=== PATIENT | female | born 1940 | race Caucasian/White ===

== ENCOUNTER → 2016-10-25 | Outpatient (CLI) | payer OTHER | LOC: BMCIMAGING 10:07 | PROVIDERS: ATTEND Internal Medicine | DX: Z13.820 Encounter for screening for osteoporosis (principal); M85.80 Other specified disorders of bone density and structure, unspecified site ==

== ENCOUNTER → 2017-02-12 | Outpatient (CLI) | payer OTHER ==
[~2017-02-12] MED LIST: IOPAMIDOL (ISOVUE-300) 100 ML BTL ONE
== END ==
LOC: FIMAGING 09:49
PROVIDERS: ATTEND Internal Medicine Endocrinology, Diabetes & Metabolism
DX: E27.8 Other specified disorders of adrenal gland (principal); M51.36 Other intervertebral disc degeneration, lumbar region; M46.96 Unspecified inflammatory spondylopathy, lumbar region; M43.16 Spondylolisthesis, lumbar region
CPT/HCPCS: Q9967

== ENCOUNTER → 2017-03-01 | Outpatient (CLI) | payer OTHER | LOC: BMCIMAGING 14:02 | PROVIDERS: ATTEND Internal Medicine | DX: R22.42 Localized swelling, mass and lump, left lower limb (principal) ==

== ENCOUNTER → 2017-03-21 | Outpatient (CLI) | payer OTHER | LOC: BHLMT 11:30 | PROVIDERS: ATTEND Internal Medicine Cardiovascular Disease | DX: I35.0 Nonrheumatic aortic (valve) stenosis (principal); I10 Essential (primary) hypertension; Z95.4 Presence of other heart-valve replacement ==

== ENCOUNTER → 2017-11-01 | Outpatient (CLI) | payer OTHER | LOC: BHLMT 09:00 | PROVIDERS: ATTEND Internal Medicine Cardiovascular Disease | DX: I25.10 Atherosclerotic heart disease of native coronary artery without angina pectoris (principal) | CPT/HCPCS: 78452; 93017; A9500 ==

== ENCOUNTER → 2017-11-08 | Outpatient (CLI) | payer OTHER | LOC: BHLMT 09:15 | PROVIDERS: ATTEND Internal Medicine Cardiovascular Disease | DX: I25.10 Atherosclerotic heart disease of native coronary artery without angina pectoris (principal); Z95.2 Presence of prosthetic heart valve; Z98.890 Other specified postprocedural states | CPT/HCPCS: 93306-PO ==

== ENCOUNTER → 2017-11-11 | Outpatient (CLI) | payer OTHER | LOC: BMCIMAGING 09:44 | PROVIDERS: ATTEND Family Medicine | DX: R07.81 Pleurodynia (principal); Z95.2 Presence of prosthetic heart valve | CPT/HCPCS: 71101-PO ==

== ENCOUNTER → 2018-03-12 | Outpatient (CLI) | payer OTHER | LOC: BMCIMAGING 10:30 | PROVIDERS: ATTEND Family Medicine | DX: M23.92 Unspecified internal derangement of left knee (principal); M11.262 Other chondrocalcinosis, left knee; M25.462 Effusion, left knee ==

== ENCOUNTER → 2018-04-05 | Outpatient (CLI) | payer OTHER | LOC: FIMAGING 07:35 | PROVIDERS: ATTEND Orthopaedic Surgery | DX: S83.242A Other tear of medial meniscus, current injury, left knee, initial encounter (principal); S83.282A Other tear of lateral meniscus, current injury, left knee, initial encounter; M25.462 Effusion, left knee ==

== ENCOUNTER 2018-05-12 13:10 | Observation (INO) | payer OTHER ==
[2018-05-12] MEDS ORDERED: LABETALOL HCL 5 MG/ML 20 ML MDV IVP ONE (13:31)
[2018-05-12] MEDS ORDERED: NS 500 ML IV ONE (13:32)
[2018-05-12] MEDS ORDERED: ASPIRIN 81 MG CHEWABLE TAB PO ONE (13:32)
--- NOTE | 2018-05-12 13:36 | EDPHY ---
H & P Time Seen by Provider: 05/12/18 13:17 HPI/ROS: CHIEF COMPLAINT: Chest pain HISTORY OF PRESENT ILLNESS: Patient is a 69-year-old female status post mitral valve replacement in 2003 the presents emergency department with substernal chest pain. Her pain started at 10:00 a.m. She reports doing nothing strenuous. Her pain is significant. It does not radiate. It is a dull type pain. She has no shortness of breath. No nausea, vomiting or diaphoresis. She has no recent travel. No leg pain or swelling. She is on Coumadin for her mitral valve prolapse. Patient is also noted to have factor 5 Leiden. Patient states that when she had her mitral valve prolapse replacement in 2003 they told her that she had clean and normal appearing arteries. REVIEW OF SYSTEMS: 10 systems were reveiwed and are negative with the exception of the elements mentioned in the hisotry of present illness. Past Medical/Surgical History: Includes factor 5 Leiden, mitral valve disease Past surgical history: Mitral valve replacement Social history: Patient lives with her daughter. She does not smoke use alcohol. Smoking Status: Never smoked Physical Exam: Vitals noted. Patient is hypertensive at 207/105. When I was in the room the pressure was 190/74. GENERAL: Well-appearing, in no acute distress, alert. HEENT: Eyes normal to inspection, normal pharynx, no signs of dehydration. NECK: Normal, supple. RESPIRATORY: Clear to auscultation bilaterally, no rales, rhonchi or wheezing. CVS: Regular rate and rhythm, no rubs, murmurs, or gallops. Sternal scar. No sternal tenderness to palpation. No deformity or discoloration. ABDOMEN: Soft, nontender, nondistended, no organomegaly. BACK: Normal to inspection, no CVA tenderness. SKIN: Normal color, no rash, warm, dry. No pallor. EXTREMITIES: No pedal edema, no calf tenderness, no Homans sign or cords, no joint swelling. NEURO/PSYCH: Alert and oriented, normal mood and affect, normal motor sensory exam. No obvious cranial nerve deficit. Constitutional: Initial Vital Signs Temperature (C) 36.5 C 05/12/18 13:11 Heart Rate 89 05/12/18 13:11 Respiratory Rate 20 05/12/18 13:11 Blood Pressure 207/105 H 05/12/18 13:11 O2 Sat (%) 95 05/12/18 13:11 O2 Delivery Mode Room Air Allergies/Adverse Reactions: formaldehyde Allergy (Verified 05/12/18 13:15) Sulfa (Sulfonamide Antibiotics) Allergy (Verified 05/12/18 13:15) Home Medications: Medication Instructions Recorded Coumadin 05/12/18 Metoprolol Tartrate 05/12/18 Medical Decision Making - Diagnostics Imaging Results: Imaging Impressions Chest X-Ray 05/12/18 13:33 Impression: Question mild bronchitis. No other finding for acute cardiopulmonary abnormality. Chronic findings, as above. ED Course/Re-evaluation: In the emergency department I discussed possible etiologies with the patient. I answered all her questions. Patient was given aspirin 324 mg orally. Because the patient's hypertension and heart rate in the 90 she was given labetalol 10 mg IV. EKG shows normal sinus rhythm, normal rate, normal axis, normal intervals. There are no ST or T-wave abnormalities. EKG is normal as interpreted by me. On recheck the patient is stable. Still with mild chest discomfort White count is 10. Patient's chemistry panel is notable for low sodium 132. The INR is elevated at 2.4. Troponin is negative. On recheck the patient was feeling better. Her chest pain had improved. Repeat blood pressure is 158/63. I discussed the results with the patient. I answered all of her questions. I discussed the case with Dr. Rizzo. Patient will be admitted for further evaluation. Differential Diagnosis: My differential includes but is not limited to hypertensive emergency, hypertensive urgency, ACS, acute WA, dissection, aneurysm, pulmonary embolus, reflux peptic ulcer disease Critical Care Time: Patient required 35 min critical care time. This was exclusive of any unbundled procedure. This was due the patient's elevated blood pressure, chest pain, need for IV labetalol, frequent rechecks and consultation with Internal Medicine. - Data Points Laboratory Results: Laboratory Results 05/12/18 13:24 05/12/18 13:24 05/12/18 05/12/18 05/12/18 13:29 13:24 13:24 WBC RBC Hgb Hct MCV MCH MCHC RDW Plt Count MPV Neut % (Auto) Lymph % (Auto) [place] % (Auto) Eos % (Auto) Baso % (Auto) Nucleat RBC Rel Count Absolute Neuts (auto) Absolute Lymphs (auto) Absolute Monos (auto) Absolute Eos (auto) Absolute Basos (auto) Absolute Nucleated RBC Immature Gran % Immature Gran # PT 26.8 SEC H SEC (12.0-15.0) INR 2.48 H (0.83-1.16) APTT 40.3 SEC H SEC (23.0-38.0) D-Dimer 0.42 ug/mLFEU ug/mLFEU (0.00-0.50) Sodium 132 mEq/L L mEq/L (135-145) Potassium 3.9 mEq/L mEq/L (3.3-5.0) Chloride 97 mEq/L mEq/L (97-110) Carbon Dioxide 25 mEq/l mEq/l (22-31) Anion Gap 10 mEq/L mEq/L (8-16) BUN 13 mg/dL mg/dL (7-23) Creatinine 0.6 mg/dL mg/dL (0.6-1.0) Estimated GFR > 60 Glucose 107 mg/dL H mg/dL (70-100) Calcium 9.3 mg/dL mg/dL (8.5-10.4) Total Bilirubin 1.1 mg/dL mg/dL (0.1-1.4) Conjugated Bilirubin 0.0 mg/dL mg/dL (0.0-0.5) Unconjugated Bilirubin 1.1 mg/dL mg/dL (0.0-1.1) AST 38 IU/L IU/L (14-46) ALT 48 IU/L IU/L (9-52) Alkaline Phosphatase 116 IU/L IU/L (38-126) POC Troponin I 0.01 ng/mL ng/mL (0.00-0.08) Total Protein 6.9 g/dL g/dL (6.3-8.2) Albumin 4.1 g/dL g/dL (3.5-5.0) Lipase 109 IU/L IU/L (23-300) 05/12/18 13:24 WBC 10.70 10^3/uL H 10^3/uL (3.80-9.50) RBC 5.00 10^6/uL 10^6/uL (4.18-5.33) Hgb 14.6 g/dL g/dL (12.6-16.3) Hct 42.6 % % (38.0-47.0) MCV 85.2 fL fL (81.5-99.8) MCH 29.2 pg pg (27.9-34.1) MCHC 34.3 g/dL g/dL (32.4-36.7) RDW 13.5 % % (11.5-15.2) Plt Count 215 10^3/uL 10^3/uL (150-400) MPV 10.1 fL fL (8.7-11.7) Neut % (Auto) 64.7 % % (39.3-74.2) Lymph % (Auto) 27.2 % % (15.0-45.0) [place] % (Auto) 6.6 % % (4.5-13.0) Eos % (Auto) 1.0 % % (0.6-7.6) Baso % (Auto) 0.3 % % (0.3-1.7) Nucleat RBC Rel Count 0.0 % % (0.0-0.2) Absolute Neuts (auto) 6.92 10^3/uL H 10^3/uL (1.70-6.50) Absolute Lymphs (auto) 2.91 10^3/uL 10^3/uL (1.00-3.00) Absolute Monos (auto) 0.71 10^3/uL 10^3/uL (0.30-0.80) Absolute Eos (auto) 0.11 10^3/uL 10^3/uL (0.03-0.40) Absolute Basos (auto) 0.03 10^3/uL 10^3/uL (0.02-0.10) Absolute Nucleated RBC 0.00 10^3/uL 10^3/uL (0-0.01) Immature Gran % 0.2 % % (0.0-1.1) Immature Gran # 0.02 10^3/uL 10^3/uL (0.00-0.10) PT INR APTT D-Dimer Sodium Potassium Chloride Carbon Dioxide Anion Gap BUN Creatinine Estimated GFR Glucose Calcium Total Bilirubin Conjugated Bilirubin Unconjugated Bilirubin AST ALT Alkaline Phosphatase POC Troponin I Total Protein Albumin Lipase Medications Given: Discontinued Medications Aspirin (Aspirin) 324 mg PO EDNOW ONE Stop: 05/12/18 13:33 Last Admin: 05/12/18 13:37 Dose: 324 mg Sodium Chloride (Ns) 500 mls @ 1,000 mls/hr IV EDNOW ONE PRN Reason: Protocol Stop: 05/12/18 14:01 Last Admin: 05/12/18 13:37 Dose: 500 mls Labetalol HCl (Trandate Injection) 10 mg IVP ONCE ONE Stop: 05/12/18 13:32 Last Admin: 05/12/18 13:56 Dose: 10 mg Point of Care Test Results: Chemistry 05/12/18 13:29 POC Troponin I 0.01 ng/mL ng/mL (0.00-0.08) Departure - Departure Disposition: [facility] Inpatient Acute Clinical Impression: Hypertensive urgency Chest pain Qualifiers: Chest pain type: unspecified Qualified Code(s): R07.9 - Chest pain, unspecified Condition: Good Referrals: Henny Bates MD [Primary Care Provider] - As per Instructions
[2018-05-12 13:39] LABS: PLATELET COUNT 215 10^3/uL (150-400)
[2018-05-12 13:48] LABS: INR 2.48 (0.83-1.16); PROTIME(PATIENT) 26.8 SEC (12.0-15.0)
--- NOTE | 2018-05-12 14:27 | CPEKG ---
Test Reason : OPEN Blood Pressure : / mmHG Vent. Rate : 086 BPM Atrial Rate : 086 BPM P-R Int : 189 ms QRS Dur : 094 ms QT Int : 355 ms P-R-T Axes : 037 -33 053 degrees QTc Int : 425 ms Sinus rhythm Probable left ventricular hypertrophy Confirmed by Ritchie Chavira ([id number]) on 05/12/2018 2:27:02 PM Referred By: Confirmed By:Ritchie Chavira
[2018-05-12] MEDS ORDERED: ONDANSETRON 4 MG/2 ML VIAL IVP PRN (16:35)
[2018-05-12] MEDS ORDERED: PROMETHAZINE HCL 25 MG/ML INJ IVP PRN (16:35)
[2018-05-12] MEDS ORDERED: ACETAMINOPHEN 325 MG TAB PO PRN (16:35)
[2018-05-12] MEDS ORDERED: hydrALAZINE 20 MG/ML VIAL IVP PRN (16:35)
[2018-05-12] MEDS ORDERED: NITROGLYCERIN 0.4 MG BTL SL PRN (16:36)
[2018-05-12] MEDS ORDERED: PANTOPRAZOLE SODIUM 40 MG TAB PO ONE (16:39)
--- NOTE | 2018-05-12 17:23 | GHP ---
DATE OF ADMISSION: 05/12/2018 CHIEF COMPLAINT: Chest pain. HISTORY: The patient is a 77-year-old female who had onset of chest pain at 10 o'clock this morning. She describes as a central intense chest pressure. She took her blood pressure immediately at ches t pain onset and it was on her home monitor 129/69. Chest pain has been continuous, although improve d. At its worst it was a 7/10. Currently it has come down to 2/10. The only intervention in the em ergency room was a dose of IV labetalol for severe blood pressure elevation. She denies a history of hypertension as she monitors her blood pressure at home intermittently with a home cuff and has celestino bass had elevated readings. She says the chest pain has no change with ambulation or at rest. She desc ribes it as an intense burning without radiation. PAST MEDICAL HISTORY: 1. Mitral valve replacement with a [employer] mechanical valve in 2003. 2. Cardiac catheterization in 2003 at the time of her valve replacement was negative. 3. Factor V Leiden. MEDICATIONS: Please see computerized record for full detailed list. ALLERGIES: To sulfa and formaldehyde. SOCIAL HISTORY: She quit smoking at age 39. No alcohol. She lives with her son and [id number] . REVIEW OF SYSTEMS: Complete review of systems obtained. Review of systems negative regarding consti tutional, HEENT, GI, pulmonary, vascular, , hematologic, endocrine, psych except for positives and negatives as in HPI. FAMILY HISTORY: Brother had coronary artery disease requiring stents in his 60s. PHYSICAL EXAMINATION: GENERAL: Well-developed, well-nourished female, in no acute distress. VITAL SIGNS: Temperature is 36.5, pulse 89, blood pressure 155/82, sating 96% on room air. EYE: Normal c onjunctiva. Pupils react to light. ENT: Normal ears, nose. Hearing intact. Normal teeth. Oropha rynx moist. NECK: Trachea midline. No thyromegaly. CHEST: Normal respiratory effort. LUNGS: Cl ear to auscultation bilaterally. CARDIOVASCULAR: Regular rhythm. No murmur. No lower extremity ed mirna. ABDOMEN: Soft, nontender, no hepatosplenomegaly. SKIN: Warm, dry, intact without rash. MUSC ULOSKELETAL: No cyanosis, clubbing. Strength 5/5 upper and lower extremities. NEUROLOGIC: Cranial nerves intact. Normal sensation to light touch. PSYCHIATRIC: Alert and oriented x3. Normal affect . Normal judgment and insight. Normal memory. LABORATORY/IMAGING DATA: White count 10.7, hematocrit 42.6, platelets 215. Sodium 132, potassium 3. 9, chloride 97, bicarb 25, BUN 13, creatinine of 0.6, glucose 107. LFTs are negative. Troponins neg ative. INR is 2.48. D-dimer is negative. EKG viewed by me. My personal interpretation is normal s inus rhythm with LVH. Chest x-ray is negative. ASSESSMENT/PLAN: 1. Chest pain. Her heart score is 4 as evidenced by moderately suspicious history, age greater than 65, and 2 risk factors including family history, and current hypertension. She is able to exercise. Her EKG shows borderline left ventricular hypertrophy, but we will go ahead and try her on a standa rd exercise treadmill test tomorrow morning. Will give her a 1-time dose of oral Protonix it sounds like it may be gastroesophageal reflux disease. Also for pain control intravenous morphin e and sublingual nitroglycerin can be used and hopefully we can make her chest pain-free here soon. Her D-dimer is negative. I have a low clinical suspicion for aortic dissection or pulmonary embolus. Will hold her metoprolol in anticipation of exercise stress test tomorrow morning. 2. Hypertensive emergency as is evidenced by severe blood pressure elevation with chest pain. This is better after a 1-time dose of intravenous labetalol. Will use intravenous hydralazine as needed f or continued elevations. She monitors her blood pressure at home and has never had elevated readings in the past. Some of this may be due to pain and anxiety. If blood pressures remain persistently e levated during the observation period, then oral medication can be considered in addition to her usua l metoprolol. 3. Mitral valve replacement. Warfarin should be continued for goal INR 2.5 to 3.5. I will continue it for now thinking she may have a negative stress test workup. If, however, stress test is positive , will need to pursue cardiac catheterization. Probably need to reverse anticoagulation. CODE STATUS: Full. ADMISSION STATUS: Will admit to observation. Reevaluate tomorrow post stress testing to see whether further hospitalization is indicated. DVT PROPHYLAXIS: She is low risk given her chronic anticoagulation. /[id number]/MODL
[2018-05-12] MEDS ORDERED: WARFARIN SODIUM 4 MG TAB PO SCH (19:00)
[2018-05-12] MEDS ORDERED: WARFARIN SODIUM 2 MG TAB PO SCH (19:15)
--- NOTE | 2018-05-12 23:41 | CPEKG ---
Test Reason : OPEN Blood Pressure : / mmHG Vent. Rate : 075 BPM Atrial Rate : 075 BPM P-R Int : 205 ms QRS Dur : 094 ms QT Int : 378 ms P-R-T Axes : 057 -30 051 degrees QTc Int : 423 ms Sinus rhythm Probable left atrial enlargement Left axis deviation Probable anteroseptal infarct, old Confirmed by Gibran Gilliland ([id number]) on 05/12/2018 11:40:34 PM Referred By: Confirmed By:Gibran Gilliland
[2018-05-13 04:47] LABS: INR 2.69 (0.83-1.16); PROTIME(PATIENT) 28.5 SEC (12.0-15.0)
[2018-05-13] MEDS ORDERED: ASPIRIN EC 81 MG TAB PO SCH (09:00)
--- NOTE | 2018-05-13 11:12 | CPR ---
DATE OF PROCEDURE: 05/13/2018 EXERCISE TREADMILL STRESS TEST: INDICATIONS: 1. Chest pain. 2. History of mechanical mitral valve replacement. COMPLICATIONS: None. DESCRIPTION OF PROCEDURE: NPO status was confirmed. The patient was established to the monitor. She underwent a standard Jd protocol. Continuous tel emetry and [id number] blood pressures were obtained. REST FINDINGS: Resting EKG shows sinus rhythm with PVC. Minimal inferolateral ST-depression at base line. STRESS FINDINGS: The patient exercised for 6 minutes on the Jd protocol, achieving a max workload of 7.1 METS. Resting blood pressure was 128/82, with a heart rate of 84 beats per minute. Max bloo d pressure 190/62. Max heart rate 148 beats per minute. This represents 104% of age-predicted maxim um heart rate. The stress EKG shows no new ST-depression beyond baseline. Rare PVCs. The patient experienced no angina. CONCLUSIONS: 1. Normal hemodynamic response to exercise, with slow blood pressure recovery, but normal heart rate recovery. 2. No new ischemic EKG changes. Mildly abnormal resting EKG. 3. EKG is negative for stress-induced ischemia. /[id number]/MODL
[2018-05-13 11:53] VITALS: BP 138/73
--- NOTE | 2018-05-13 13:43 | ASMTLACE ---
LACE Length of stay for Answers: 1 day current admission Acuity / Level of Answers: No Care: Did the patient have an inpatient admission? Comorbidities - select Answers: Other Notes: mitral valve replace all that apply 2003, factor V Leiden # of Emergency department Answers: 1-2 visits in the last 6 months Score: 3 Date Signed: 05/13/2018 01:43 PM Electronically Signed By:DENVER Martinez
--- NOTE | 2018-05-13 13:43 | ASMTCMCOM ---
CM Note CM Note Notes: Pt is a 77 y/o female admitted for chest pain. Pt will d/c independent when medically stable. No therapies ordered at this time. CM available for changes. Plan: Independent Date Signed: 05/13/2018 01:42 PM Electronically Signed By:DENVER Martinez
--- NOTE | 2018-05-13 15:25 | ASDISCHSUM ---
Discharge Information Plan Status:Home with No Needs Medically Cleared to Leave:05/13/2018 Discharge Date:05/13/2018 01:29 PM CM D/C Disposition:Home, Routine, Self-Care ADT D/C Disposition:Home, Routine, Self-Care Projected Discharge Date:05/13/2018 01:29 PM Transportation at D/C: Discharge Delay Reason: Follow-Up Date:05/13/2018 01:29 PM Discharge Slot: Final Diagnosis: Placement Information Patient Contact Information Contact Name:RICKY Relationship:Daughter Address: Work Phone: City: [facility] Phone: State/[employer] Code: Email: Financial Information Financial Class:Medicare Primary Plan Desc:MEDICARE OUTPATIENT Primary Plan Number:[id number] Secondary Plan Desc: Secondary Plan Number:[id number] Assessment Information LACE LACE Length of stay for Answers: 1 day current admission Acuity / Level of Answers: No Care: Did the patient have an inpatient admission? Comorbidities - select Answers: Other Notes: mitral valve replace all that apply 2003, factor V Leiden # of Emergency department Answers: 1-2 visits in the last 6 months Score: 3 Date Signed: 05/13/2018 01:43 PM Electronically Signed By:DENVER Martinez [facility] Progress Note CM Note CM Note Notes: Pt is a 77 y/o female admitted for chest pain. Pt will d/c independent when medically stable. No therapies ordered at this time. CM available for changes. Plan: Independent Date Signed: 05/13/2018 01:42 PM Electronically Signed By:DENVER Martinez Intervention Information
--- NOTE | 2018-05-13 17:14 | GDS ---
DISCHARGE DIAGNOSES: 1. Chest pain. 2. Hypertension. 3. History of mitral valve replacement. 4. Factor V Leiden. HISTORY OF PRESENT ILLNESS: A pleasant 77-year-old female with history of mitral valve replacement a nd hypertension, presenting with chest pain that started at 10:00 the day of admission. This was an intense chest pressure. She checked her blood pressure, and it was 129/69. Chest pain had been cont inuous, though somewhat improved, worse noted 03/19. She was dosed IV labetalol in the ER for systoli c blood pressure greater than 200. She says she checks her blood pressure intermittently at home and normally is 120s to 130s. Denies associated nausea, vomiting, or diaphoresis. HOSPITAL COURSE BY PROBLEM: 1. Chest pain. She had a heart score 4. Suspect this is in the setting of elevated blood pressure. Exercise treadmill test was negative for ischemia. Blood pressure is improved to 140s. 2. Accelerated hypertension: Blood pressure has been elevated here. I suggested starting an additi onal antihypertensive besides her metoprolol. She did not want to do that here, so we decided she wo uld log her blood pressures for the next several days, and if persistently elevated greater than 140, she should call her PCP for additional medication. DISPOSITION: The patient is stable for discharge home. NEW MEDICATIONS: None. FOLLOWUP: 1. PCP. 2. BP log. PHYSICAL EXAMINATION: VITAL SIGNS: Temperature 36.9. Blood pressure 138/73. Heart rate is in the 80s. Respirations 17. 94% on room air. GENERAL: She is well appearing, smiling, in no acute distr ess. HEENT: PERRLA. Moist mucous membranes. CV: Regular rate and rhythm. No lower extremity cha ma. LUNGS: Clear. ABDOMEN: Soft, nontender, nondistended. Positive bowel sounds. : No [place]. MUSCULOSKELETAL: 5/5 upper and lower extremities. NEUROLOGIC: 2 through 12 intact. PSYCHIATRIC: Alert and oriented x3. Time spent on discharge: Greater than 30 minutes bedside with patient, reviewing labs, progress note s, cardiac study, and coordinating discharge. /[id number]/MODL
[2018-05-13] MEDS ORDERED: WARFARIN SODIUM 2 MG TAB PO SCH (19:00)
== END 2018-05-13 13:29 | disposition home or self-care (01) ==
LOC: F2W 15:39
PROVIDERS: ADMIT Internal Medicine; ATTEND Internal Medicine
DX: I16.0 Hypertensive urgency (principal); R07.89 Other chest pain; Z95.2 Presence of prosthetic heart valve; D68.51 Activated protein C resistance
CPT/HCPCS: 71046; 93005; 93017; 96374; 99291; G0378; 84484-PO

== ENCOUNTER 2018-06-06 11:23 | Observation (INO) | payer OTHER ==
[2018-06-06] MEDS ORDERED: NS 1,000 ML IV ONE (11:59)
--- NOTE | 2018-06-06 12:01 | EDPHY ---
H & P Stated Complaint: "Feelin spacey", pt reports not being able to focus since 0730 today Time Seen by Provider: 06/06/18 11:52 HPI/ROS: CHIEF COMPLAINT: Trouble focusing HISTORY OF PRESENT ILLNESS: The patient is a 77-year-old female with a history of mitral valve replacement with [facility] in 2003 and factor 5 Leiden deficiency on Coumadin as well as a TIA in the past. She comes to the emergency department stating that while she was golfing around 730 in the morning she suddenly had trouble remembering which course she was going to use. She was able to finish [address] herself to the emergency department but states that she felt like she was thinking "foggy". She states that she feels "spacey". Her symptoms persisted until she got here to the department and states that lying down seem to help. She denies feeling lightheaded or dizzy. He denies chest pain or palpitations. No shortness of breath. No fevers. No recent infections or trauma. No focal weakness or deficits. No slurred speech Severity: Moderate Modifying factors: Resolved spontaneously REVIEW OF SYSTEMS: Constitutional: denies: chills, fever, recent illness, recent injury EENTM: denies: blurred vision, double vision, nose congestion Respiratory: denies: cough, shortness of breath Cardiac: denies: chest pain, irregular heart rate, lightheadedness, palpitations Gastrointestinal/Abdominal: denies: abdominal pain, diarrhea, nausea, vomiting, blood streaked stools Genitourinary: denies: dysuria, frequency, hematuria, pain Musculoskeletal: denies: joint pain, muscle pain Skin: denies: lesions, rash, jaundice, bruising Neurological: See HPI denies: headache, numbness, paresthesia, tingling, dizziness, weakness Hematologic/Lymphatic: denies: blood clots, easy bleeding, easy bruising Immunologic/allergic: denies: HIV/AIDS, transplant 10 systems reviewed and negative except as noted EXAM: GENERAL: Well-appearing, well-nourished and in no acute distress. HEAD: Atraumatic, normocephalic. EYES: Pupils equal round and reactive to light, extraocular movements intact, sclera anicteric, conjunctiva are normal. ENT: TMs normal, nares patent, oropharynx clear without exudates. Moist mucous membranes. NECK: Normal range of motion, supple without lymphadenopathy or JVD. LUNGS: Breath sounds clear to auscultation bilaterally and equal. No wheezes rales or rhonchi. HEART: Regular rate and rhythm without murmurs, rubs or gallops. ABDOMEN: Soft, nontender, normoactive bowel sounds. No guarding, no rebound. No masses appreciated. BACK: No CVA tenderness, no spinal tenderness, step-offs or deformities EXTREMITIES: Normal range of motion, no pitting or edema. No clubbing or cyanosis. NEUROLOGICAL: Cranial nerves II through XII grossly intact. Normal speech, normal gait. 5/5 strength, normal movement in all extremities, normal sensation , normal reflexes PSYCH: Normal mood, normal affect. SKIN: Warm, dry, normal turgor, no visible rashes or lesions. Source: Patient Exam Limitations: No limitations - Personal History Current Tetanus/Diphtheria Vaccine: Yes Current Tetanus Diphtheria and Acellular Pertussis (TDAP): Yes - Medical/Surgical History Hx Asthma: No Hx Chronic Respiratory Disease: No Hx Diabetes: No Hx Cardiac Disease: Yes Hx Renal Disease: No Hx Cirrhosis: No Hx Alcoholism: No Hx HIV/AIDS: No Hx Splenectomy or Spleen Trauma: No Other PMH: Mitral valve replacement 2003, factor V deficiency, TIA - Family History Significant Family History: No pertinent family hx - Social History Smoking Status: Never smoked Alcohol Use: None Constitutional: Initial Vital Signs Temperature (C) 36.6 C 06/06/18 11:25 Heart Rate 83 06/06/18 11:25 Respiratory Rate 16 06/06/18 11:25 Blood Pressure 196/97 H 06/06/18 11:25 O2 Sat (%) 94 06/06/18 11:25 O2 Delivery Mode Room Air Allergies/Adverse Reactions: formaldehyde Allergy (Verified 05/12/18 15:38) Sulfa (Sulfonamide Antibiotics) Allergy (Verified 05/12/18 15:38) Hives Home Medications: Medication Instructions Recorded Calcium Carbonate [Oyster Shell 500 mg PO DAILY 05/12/18 Calcium 500 mg (*)] Cholecalciferol Vit D3 [Vitamin D3 1,000 units PO DAILY 05/12/18 (*)] Fluticasone Nasal [Flonase Nasal 1 sprays NASAL DAILY PRN 05/12/18 [place]] Metoprolol Succinate Xr [Toprol Xl 25 mg PO DAILY@05/12/18 25 mg (*)] [place]-3 Fatty Acids [Fish Oil 1000 1,000 mg PO DAILY 05/12/18 mg (*)] Warfarin Sodium [Coumadin 3MG (*)] 3 mg PO MOWEFR@05/12/18 Warfarin Sodium [Coumadin 4MG (*)] 4 mg PO SUTUTHSA@05/12/18 amLODIPine BESYLATE [Norvasc 2.5 2.5 mg PO DAILY #30 tab 06/07/18 mg (*)] Medical Decision Making - Diagnostics EKG Interpretation: An EKG obtained and was read and documented in trace view. Please see trace view for full reading and report. The sinus rhythm, no acute ischemic changes or arrhythmia Imaging: Discussed imaging studies w/ scallop dredger Radiologist ED Course/Re-evaluation: 12:30 p.m. I discussed the case with Dr. Gigi sierra who will come to evaluate. He does not wish to have her Coumadin reversed yet at this point. I spoke with the patient who still slightly confused but thinks she has had CT scans in the past with this may have come up. She does not remember where. She lives in [place] and typically goes to [facility]. We will attempt to obtain records from them. 1:45 p.m. I discussed the case with Dr. Fenton as well as Tracy from [facility]. They will consult as well. I discussed with Dr. Brody who will admit. Differential Diagnosis: Partial list of the Differential diagnosis considered include but were not limited to; intracranial hemorrhage, TIA, infection acute coronary disease and although unlikely based on the history and physical exam, I also considered CHF , infection. Critical Care Time: Critical care time spent by me, Dr. Go exclusive with this patient was 35 minutes, exclusive of the PA time exclusive of procedures. The organ system that was at risk was neurovascular and I gave, consultation and admission to prevent worsening of the patient's condition - Data Points Laboratory Results: Laboratory Results 06/06/18 11:45 06/06/18 11:45 Medications Given: Discontinued Medications Amlodipine Besylate (Norvasc) 2.5 mg PO DAILY [facility] Stop: 12/04/18 08:59 Last Admin: 06/07/18 09:47 Dose: Not Given Calcium Carbonate (Oyster Shell Calcium) 500 mg PO DAILY [facility] Stop: 12/04/18 08:59 Last Admin: 06/07/18 09:47 Dose: 500 mg Cholecalciferol (Vitamin D) 1,000 units PO DAILY [facility] Stop: 12/04/18 08:59 Last Admin: 06/07/18 09:47 Dose: 1,000 units Sodium Chloride (Ns) 1,000 mls @ 0 mls/hr IV ONCE ONE; Wide Open PRN Reason: Protocol Stop: 06/06/18 12:00 Last Admin: 06/06/18 12:23 Dose: 1,000 mls Lorazepam (Ativan Injection) 1 mg IVP EDNOW ONE Stop: 06/06/18 13:46 Last Admin: 06/06/18 13:49 Dose: 1 mg Metoprolol Succinate (Toprol Xl) 25 mg PO DAILY@19 [facility] Stop: 12/03/18 18:59 Last Admin: 06/06/18 19:23 Dose: Not Given [id number] Ethyl Esters (Fish Oil) 1,000 mg PO DAILY [facility] Stop: 12/04/18 08:59 Last Admin: 06/07/18 09:47 Dose: 1,000 mg Warfarin Sodium (Coumadin) 4 mg PO SUTUTHSA@19 [facility] Stop: 12/03/18 18:59 Last Admin: 06/06/18 19:23 Dose: Not Given Departure - Departure Disposition: [facility] Acute Clinical Impression: Intracranial hemorrhage Condition: Good
[2018-06-06 12:06] LABS: PLATELET COUNT 210 10^3/uL (150-400)
--- NOTE | 2018-06-06 12:08 | CPEKG ---
Test Reason : OPEN Blood Pressure : / mmHG Vent. Rate : 083 BPM Atrial Rate : 084 BPM P-R Int : 177 ms QRS Dur : 107 ms QT Int : 348 ms P-R-T Axes : 020 -40 063 degrees QTc Int : 409 ms Sinus rhythm Probable left atrial enlargement Left ventricular hypertrophy Anterior Q waves, possibly due to LVH Confirmed by Gilmar Go ([id number]) on 06/06/2018 12:07:31 PM Referred By: Confirmed By:Gilmar Go
[2018-06-06 12:16] LABS: INR 2.96 (0.83-1.16); PROTIME(PATIENT) 30.7 SEC (12.0-15.0)
[2018-06-06] MEDS ORDERED: LORazepam 2 MG/ML INJ IVP ONE (13:45)
[2018-06-06] MEDS ORDERED: GADOBUTROL 10 ML VIAL IVP ONE (14:01)
[2018-06-06] MEDS ORDERED: ACETAMINOPHEN 325 MG TAB PO PRN (14:02)
[2018-06-06] MEDS ORDERED: ONDANSETRON 4 MG/2 ML VIAL IVP PRN (14:02)
[2018-06-06] MEDS ORDERED: ONDANSETRON DISINTEGRATING 4 MG TAB PO PRN (14:02)
--- NOTE | 2018-06-06 14:08 | GCON ---
DATE OF CONSULTATION: 06/06/2018 REASON FOR CONSULTATION: Amnesia/forgetfulness with evidence of new intracranial abnormality on head CT. HOSPITAL COURSE, HISTORY AND MAJOR MEDICAL FINDINGS: The patient is a 77-year-old female who present ed to [facility] Emergency room after having an episode this morning where she was forgetful. She was at the golf course this morning and could not remember the name of the golf course that she was at. She went on to playing 9 rounds of golf without any complication. However, when she was fi nished playing golf, she still felt a little bit off and not able to fully remember everything that s he wanted to remember. She denies any nausea, vomiting, dizziness. She does have a history of a paresh ral valve repair that she states slipped out of position. She denies any other major significant pas t medical history. She states that this has happened to her before and when it has happened, she has gone to her local care facility to be evaluated most recently in [place]. She does live he re now. She was seen here on 05/12/2018 as well for chest pain. REVIEW OF SYSTEMS: Review of systems is negative other than what is stated in the HPI. Please see p ertinent negatives and positives. PAST MEDICAL HISTORY: Significant for mitral valve replacement with a [facility]andro mechanical valve in 2 , cardiac catheterization in 2003, and Factor 5 Leiden. ALLERGIES: Sulfa and formaldehyde. SOCIAL HISTORY: The patient quit smoking at age 39. She does not drink any alcohol, though she did have 2 glasses of wine the last few nights. She lives with her son and rtzowefe-ci-nan. FAMILY HISTORY: She had a brother with coronary artery disease, as well as a mother with coronary ar dionna disease. PHYSICAL EXAM: VITALS: BP is 175/85, heart rate is 84. She is 97% on room air. Temp is 36.6. GENERAL: The patient is in no acute distress. She is alert and oriented x3. She answers questions appropriately. Affect appropriate to given situation. During the interview, she does state that the re are certain things she can't remember, like the name of her doctor in [place]. She does not appear to have any expressive aphasia and was able to name all objects presented to her. NEURO: Cranial nerves 2-12 are grossly intact. EOMI and PERRLA. Patient has 5/5 and equal in her bilatera l upper and bilateral lower extremities, including her deltoids, triceps, biceps, wrist flexors, exte nsors, interossei, intrinsic project design engineer, iliopsoas, hamstrings, quadriceps, plantar flexion, dorsiflexion, and EHL. Sensation is intact in bilateral upper and bilateral lower extremities. 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 ASSESSMENT AND PLAN: The patient is a 77-year-old female who presented to [facility] emergenc y room with some increased forgetfulness and mentally not feeling like her baseline self. She did parsons ve a CT scan which demonstrates a small right intraparenchymal hemorrhage versus calcification. The patient was seen both by Dr. Westfall and myself in the emergency room. At this point in time, we have recommended she undergo an MRI to further characterize this lesion. We will await the results of is MRI before recommending any further treatment or hospitalization. The discussion was made with e patient that if her MRI finds this to be a benign lesion, that we would advise her to possibly see Neurology for her forgetfulness episodes. Copy requested to: Herson Westfall MD /[id number]/MODL
[2018-06-06] MEDS ORDERED: FLUTICASONE NASAL 120 SPRAYS/16 GM MDI EACHNARE PRN (16:05)
[2018-06-06] MEDS ORDERED: amLODIPine BESYLATE 5 MG TAB PO SCH (16:15)
--- NOTE | 2018-06-06 16:15 | PDGENHP ---
History and Physical - Chief Complaint Acute encephalopathy - History of Present Illness Primary care provider: Dr. Bates Primary installation and service technician: Dr. Ballesteros HPI: 77-year-old female presenting with acute encephalopathy characterized as abrupt onset of memory and cognitive abnormalities including "feeling spacey" and "foggy"with onset of symptoms around 7:30 a.m. While she was golfing. She reports that she was able to play the remainder of her 9 holes of golf, but continued to experience an associated inability to concentrate. The duration of symptoms was persistent, and after her round of golf, she attempted to lie supine and this mildly alleviated her symptoms. She subsequently sought medical attention and notably had a systolic blood pressure of 196. There was a question as to whether her head CT demonstrated a left-sided intracranial hemorrhage. She reports that she took all of her home blood pressure medications on the day of presentation. History Information - Allergies/Home Medication List Allergies/Adverse Reactions: formaldehyde Allergy (Verified 05/12/18 15:38) Sulfa (Sulfonamide Antibiotics) Allergy (Verified 05/12/18 15:38) Hives Home Medications: Aspirin EC [Aspirin EC 81 mg (*)] 81 mg PO DAILY 05/12/18 [Last Taken 06/06/18] Calcium Carbonate [Oyster Shell Calcium 500 mg (*)] 500 mg PO DAILY 05/12/18 [ Last Taken 06/06/18] Cholecalciferol Vit D3 [Vitamin D3 (*)] 1,000 units PO DAILY 05/12/18 [Last Taken 06/06/18] Fluticasone Nasal [Flonase Nasal [place]] 1 sprays NASAL DAILY PRN 05/12/18 [Last Taken 06/06/18] Metoprolol Succinate Xr [Toprol Xl 25 mg (*)] 25 mg PO DAILY@05/12/18 [Last Taken 06/05/18] [place]-3 Fatty Acids [Fish Oil 1000 mg (*)] 1,000 mg PO DAILY 05/12/18 [Last Taken 06/06/18] Warfarin Sodium [Coumadin 3MG (*)] 3 mg PO MOWEFR@05/12/18 [Last Taken ] Warfarin Sodium [Coumadin 4MG (*)] 4 mg PO SUTUTHSA@05/12/18 [Last Taken ] I have personally reviewed and updated: family history, medical history, social history, surgical history - Past Medical History hypertension Additional medical history: Factor 5 Leiden disorder. TIA. Mitral valve repair - Surgical History Additional surgical history: [facility] mechanical mitral valve in 2004 - Family History Additional family history: Sibling with coronary artery disease and cardiac stents in his 60s, no recent sick family contacts - Social History Smoking Status: Former smoker Alcohol Use: Occasionally (Patient has recently began drinking alcohol, approximately 1 glass of wine per night, not drinking to excess) Drug Use: None Additional social history: Independent in her ADLs comma golfs on a regular basis Review of Systems Review of Systems: ROS: 10pt was reviewed & negative except for what was stated in HPI & below Neurological: Reports: other (Impaired concentration, impaired memory) Physical Exam Physical Exam: Temp Pulse Resp BP Pulse Ox 37.1 C 69 12 141/53 H 96 06/06/18 15:34 06/06/18 15:34 06/06/18 15:34 06/06/18 15:34 06/06/18 15:34 Constitutional: no apparent distress, appears nourished, not in pain Eyes: PERRL, anicteric sclera, EOMI Ears, Nose, Mouth, Throat: moist mucous membranes, hearing normal, ears appear normal, no oral mucosal ulcers Cardiovascular: regular rate and rhythym, no murmur, rub, or gallop, No carotid bruit, No edema Respiratory: no respiratory distress, no rales or rhonchi, clear to auscultation Gastrointestinal: normoactive bowel sounds, soft, non-tender abdomen, no palpable masses Genitourinary: no bladder fullness, no bladder tenderness Neurologic: AAOx3, sensation intact bilaterally, CN II-XII Intact, No weakness, No facial droop Psychiatric: interacting appropriately, not anxious, not encephalopathic, thought process linear, poor memory, other (Concentration 03/16, naming 3/) Lab Data & Imaging Review 06/06/18 11:45 06/06/18 11:45 WBC 10.22 10^3/uL (3.80-9.50) H 06/06/18 11:45 RBC 5.14 10^6/uL (4.18-5.33) 06/06/18 11:45 Hgb 15.1 g/dL (12.6-16.3) 06/06/18 11:45 Hct 43.7 % (38.0-47.0) 06/06/18 11:45 MCV 85.0 fL (81.5-99.8) 06/06/18 11:45 MCH 29.4 pg (27.9-34.1) 06/06/18 11:45 MCHC 34.6 g/dL (32.4-36.7) 06/06/18 11:45 RDW 13.4 % (11.5-15.2) 06/06/18 11:45 Plt Count 210 10^3/uL (150-400) 06/06/18 11:45 MPV 10.9 fL (8.7-11.7) 06/06/18 11:45 Neut % (Auto) 75.7 % (39.3-74.2) H 06/06/18 11:45 Lymph % (Auto) 18.4 % (15.0-45.0) 06/06/18 11:45 [place] % (Auto) 5.1 % (4.5-13.0) 06/06/18 11:45 Eos % (Auto) 0.3 % (0.6-7.6) L 06/06/18 11:45 Baso % (Auto) 0.2 % (0.3-1.7) L 06/06/18 11:45 Nucleat RBC Rel Count 0.0 % (0.0-0.2) 06/06/18 11:45 Absolute Neuts (auto) 7.74 10^3/uL (1.70-6.50) H 06/06/18 11:45 Absolute Lymphs (auto) 1.88 10^3/uL (1.00-3.00) 06/06/18 11:45 Absolute Monos (auto) 0.52 10^3/uL (0.30-0.80) 06/06/18 11:45 Absolute Eos (auto) 0.03 10^3/uL (0.03-0.40) 06/06/18 11:45 Absolute Basos (auto) 0.02 10^3/uL (0.02-0.10) 06/06/18 11:45 Absolute Nucleated RBC 0.00 10^3/uL (0-0.01) 06/06/18 11:45 Immature Gran % 0.3 % (0.0-1.1) 06/06/18 11:45 Immature Gran # 0.03 10^3/uL (0.00-0.10) 06/06/18 11:45 PT 30.7 SEC (12.0-15.0) H 06/06/18 11:45 INR 2.96 (0.83-1.16) H 06/06/18 11:45 APTT 43.3 SEC (23.0-38.0) H 06/06/18 11:45 VBG Lactic Acid 0.8 mmol/L (0.7-2.1) 06/06/18 12:55 Sodium 135 mEq/L (135-145) 06/06/18 11:45 Potassium 4.4 mEq/L (3.3-5.0) 06/06/18 11:45 Chloride 97 mEq/L (97-110) 06/06/18 11:45 Carbon Dioxide 26 mEq/l (22-31) 06/06/18 11:45 Anion Gap 12 mEq/L (8-16) 06/06/18 11:45 BUN 21 mg/dL (7-23) 06/06/18 11:45 Creatinine 0.6 mg/dL (0.6-1.0) 06/06/18 11:45 Estimated GFR > 60 06/06/18 11:45 Glucose 101 mg/dL (70-100) H 06/06/18 11:45 Calcium 9.8 mg/dL (8.5-10.4) 06/06/18 11:45 Total Bilirubin 1.3 mg/dL (0.1-1.4) 06/06/18 11:45 Conjugated Bilirubin 0.0 mg/dL (0.0-0.5) 06/06/18 11:45 Unconjugated Bilirubin 1.3 mg/dL (0.0-1.1) H 06/06/18 11:45 AST 43 IU/L (14-46) 06/06/18 11:45 ALT 60 IU/L (9-52) H 06/06/18 11:45 Alkaline Phosphatase 106 IU/L (38-126) 06/06/18 11:45 Troponin I 0.015 ng/mL (0.000-0.034) 06/06/18 11:44 Total Protein 7.5 g/dL (6.3-8.2) 06/06/18 11:45 Albumin 4.5 g/dL (3.5-5.0) 06/06/18 11:45 Urine Color YELLOW 06/06/18 12:20 Urine Appearance HAZY 06/06/18 12:20 Urine pH 6.0 (5.0-7.5) 06/06/18 12:20 Ur Specific [place] 1.006 (1.002-1.030) 06/06/18 12:20 Urine Protein NEGATIVE (NEGATIVE) 06/06/18 12:20 Urine Ketones NEGATIVE (NEGATIVE) 06/06/18 12:20 Urine Blood NEGATIVE (NEGATIVE) 06/06/18 12:20 Urine Nitrate NEGATIVE (NEGATIVE) 06/06/18 12:20 Urine Bilirubin NEGATIVE (NEGATIVE) 06/06/18 12:20 Urine Urobilinogen NEGATIVE EU (0.2-1.0) 06/06/18 12:20 Ur Leukocyte Esterase NEGATIVE (NEGATIVE) 06/06/18 12:20 Urine RBC 1-3 /hpf (0-3) 06/06/18 12:20 Urine WBC 1-3 /hpf (0-3) 06/06/18 12:20 Ur Epithelial Cells NONE SEEN /lpf (NONE-1+) 06/06/18 12:20 Urine Glucose NEGATIVE (NEGATIVE) 06/06/18 12:20 Visualized and Interpreted EKG results: Yes EKG Interpretation: Positive for: other (Normal sinus rhythm with Q-wave in lead V2 and V3) Assessment & Plan Assessment: 77-year-old female presents with suspected acute hypertensive encephalopathy Plan: 1. Suspected acute hypertensive encephalopathy. Unclear precipitant, systolic blood pressure 196 on presentation with a constellation of cognitive symptoms -reviewed outside records including [address] [facility], demonstrated a right-sided likely calcification but no left-sided abnormalities -brain MRI obtained, abnormality on head CT is most likely hemosiderin deposition and not in acute intracranial hemorrhage, so the patient does not have overt hypertensive emergency -will get neuro checks, monitor mental status, get cog eval -initiated on amlodipine 5 mg today by Cardiology, adjusted 2.5 mg daily with tomorrow's dosing given that I have reviewed her home blood pressure log and her blood pressures over the past 2 weeks have ranged from 110-140, which may require slightly tighter control with this new dose of amlodipine but we do not want to overtreat and cause subsequent hypotension, as the patient does endorse that she has an element of white coat hypertension which may have exacerbated her presenting values -appreciate ongoing neurosurgery consultation as well as that by Cardiology 2. Mechanical mitral valve. With underlying factor 5 Leiden history, the patient is at very high risk for cardiac emboli and systemic anticoagulation continues to be indicated -given that her goal INR is 2.5-3.5 and her blood pressure has improved to 1 40s , we will give her home dosage of Coumadin this afternoon and repeat her INR in a.m. -hold on any reversal agents 3. History of TIA. Although her presenting symptoms could be potentially secondary to a TIA, she has no evidence of CVA on MRI and the setting of a therapeutic INR and significant hypertension, I will hold her baby aspirin given her increased risk of bleed -continue statin Diet. Regular Prophylaxis. High risk patient, currently systemically anticoagulated Code. Full per patient, daughter is MD POLes Disposition. Anticipated discharge is 06/07, pending stabilization of above. After reassessment of the patient's clinical situation, review of her vitals, review of her MRI report, I have decided to place the patient under observation care and adjust her bed status to med surge. I have discussed patient's presentation with Dr. Herson Westfall, he does not think that the CT imaging represents bleed.
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
[2018-06-06] MEDS ORDERED: WARFARIN SODIUM 2 MG TAB PO SCH (19:00)
[2018-06-06] MEDS ORDERED: WARFARIN SODIUM 4 MG TAB PO SCH (19:00)
[2018-06-06] MEDS ORDERED: METOPROLOL SUCCINATE XR 25 MG TAB PO SCH ×2 (19:00)
[2018-06-07 05:05] LABS: PLATELET COUNT 172 10^3/uL (150-400)
[2018-06-07 05:12] LABS: INR 2.95 (0.83-1.16); PROTIME(PATIENT) 30.6 SEC (12.0-15.0)
[2018-06-07 08:08] VITALS: BP 130/68
[2018-06-07] MEDS ORDERED: CALCIUM CARBONATE 500 MG TAB PO SCH (09:00)
[2018-06-07] MEDS ORDERED: amLODIPine BESYLATE 5 MG TAB PO SCH (09:00)
[2018-06-07] MEDS ORDERED: CHOLECALCIFEROL VIT D3 1,000 UNITS TAB PO SCH (09:00)
[2018-06-07] MEDS ORDERED: OMEGA-3 FATTY ACIDS 1,000 MG CAP PO SCH (09:00)
--- NOTE | 2018-06-07 09:55 | ASMTCMCOM ---
CM Note CM Note Notes: CM reviewed pt's chart for d/c planning. Pt is a 77 y/o female who presented with acute encephalopathy characterized as abrupt onset of memory and cognitive abnormalities around 7:30AM while golfing. She completed 9 holes before driving herself to the ED due to continuing symptoms. Pt is being treated for hypertension. Acute hypertensive encephalopathy is suspected with an unclear precipitent. A cardiology consultation agreed with these findings and the pt was open to changing her medication management. Pt is single and retired. She is independent in her ADL's and is physically active. Prior to her hospital stay she lived independently and no CM needs have been identified at this point. CM will follow for changes. D/C Plan: Independent Date Signed: 06/07/2018 09:54 AM Electronically Signed By:Sara Cash
--- NOTE | 2018-06-07 10:51 | ASDISCHSUM ---
Discharge Information Plan Status:Home with No Needs Medically Cleared to Leave: Discharge Date: CM D/C Disposition:Home, Routine, Self-Care ADT D/C Disposition: Projected Discharge Date: Transportation at D/C:Family Discharge Delay Reason: Follow-Up Date: Discharge Slot: Final Diagnosis: Placement Information Patient Contact Information Contact Name:RICKY Relationship:Daughter Address: Work Phone: City: [facility] Phone: State/Zip Code: Email: Financial Information Financial Class:Medicare Primary Plan Desc:MEDICARE OUTPATIENT Primary Plan Number:[id number] Secondary Plan Desc:[facility] Secondary Plan Number:[id number] Assessment Information LACE LACE Length of stay for Answers: Less than 1 day current admission Acuity / Level of Answers: No Care: Did the patient have an inpatient admission? Comorbidities - select Answers: Other Notes: HBP all that apply # of Emergency department Answers: 0 visits in the last 6 months Score: 1 Date Signed: 06/07/2018 10:50 AM Electronically Signed By:Sara Cash [facility] CM Progress Note CM Note CM Note Notes: CM reviewed pt's chart for d/c planning. Pt is a 77 y/o female who presented with acute encephalopathy characterized as abrupt onset of memory and cognitive abnormalities around 7:30AM while golfing. She completed 9 holes before driving herself to the ED due to continuing symptoms. Pt is being treated for hypertension. Acute hypertensive encephalopathy is suspected with an unclear precipitent. A cardiology consultation agreed with these findings and the pt was open to changing her medication management. Pt is single and retired. She is independent in her ADL's and is physically active. Prior to her hospital stay she lived independently and no CM needs have been identified at this point. CM will follow for changes. D/C Plan: Independent Date Signed: 06/07/2018 09:54 AM Electronically Signed By:Sara Cash Intervention Information
--- NOTE | 2018-06-07 13:04 | PDCARPN ---
Cardiology Progress Note Chief Complaint: htn/hypertensive encephalopathy Assessment/Plan: Assessment: 77F with PMH htn, mechanical MVR, Factor V Leiden, admitted with acute confusion. Head CT with region showing punctate hemorrhage versus calcification. Brain MRI showed hemosiderin deposition/old calcification. Pt feels back to normal. #. hypertensive encephalopathy: pt counseled on improved BP management to try to prevent further events she has agreed to low-dose Amlodipine will plan for office follow up in 1-2 weeks #. htn: BP control now improved #. MVR: continue Warfarin Plan: - OK to d/c from cardiology perspective. 06/07/18 12:58 Subjective: No complaints. Feels back to normal. Objective: Vital Signs (8 Hrs) Temp Pulse Resp BP Pulse Ox 06/07/18 08:00 97.8 F 65 17 130/68 H 91 L Intake/Output (24 Hrs) 06/06/18 06/07/18 06/08/18 05:59 05:59 05:59 Intake Total 500 Output Total 400 Balance 100 Intake: Oral (ml) 500 Output: Urine (ml) 400 Toilet 400 Other: Weight 68.94 kg 70.9 kg Number of Voids Toilet 1 1 Result Diagrams: 06/07/18 04:19 06/07/18 04:19 - Physical Exam Constitutional: no apparent distress Eyes: PERRL, anicteric sclera Ears, Nose, Mouth, Throat: moist mucous membranes Cardiovascular: regular rate and rhythm ICD10 Worksheet Patient Problems: Problems Problem Status Onset Chest pain Acute Hypertensive urgency Acute Intracranial hemorrhage Acute
--- NOTE | 2018-06-07 15:57 | PDDCSUM ---
Discharge Summary Discharge Summary: DISCHARGE SUMMARY FOLLOW-UP ITEMS: Outpatient neurology follow-up appointment DATE OF ADMISSION: 06/06/2018 DATE OF DISCHARGE: 06/07/2018 DISCHARGE DIAGNOSES: 1. Suspected acute hypertensive encephalopathy 2. Mechanical mitral valve 3. History of TIA 4. Possible amyloid angiopathy CONSULTATIONS: Cardiology, neurosurgery PROCEDURES / IMAGING: Brain MRI demonstrating left-sided hemosiderin deposits, possibly from old bleed or amyloid angiopathy CHIEF COMPLAINT: Acute confusion, impaired memory SUBJECTIVE: Patient is feeling well at time discharge, her symptoms have completely abated, she has not had any recurrence PHYSICAL EXAM ON DISCHARGE: Systolic blood pressure is 120-140, heart rate 60-70, afebrile overnight, satting well on room air, alert awake oriented x3, no apparent distress, moving all 4 extremities, heart rhythm is regular, mild S2 snap at apex LABS ON DISCHARGE: INR 2.95, potassium 4.8, creatinine 0.6 HOSPITAL COURSE BY PROBLEM: Patient presented with acute confusion impaired memory most likely secondary to acute hypertensive encephalopathy with systolic blood pressure of 196 on presentation but no clear evidence of end-organ failure with a normal urinalysis , normal troponin level, normal creatinine level. There was initially concern for acute intracranial hemorrhage with a small blush on her noncontrast head CT , and brain MRI was obtained. The small area of abnormality was further clarified as small hemosiderin deposits, possibly secondary to previous bleed versus amyloid angiopathy. On comparison with the head CT from 2013, the patient had a right-sided calcification in the frontal lobe at that time, which is contralateral to the current finding. The patient does report previous head trauma on the left and she believes that she has chronically had a left-sided head imaging abnormality. Given her potential for amyloid angiopathy, we have recommended that she reestablish care with a local neurologist, where she can have her previous brain MRI and neurology notes from [facility] obtained for comparison. In the interim, given the patient's substantially elevated risk of bleeding with systemic anticoagulation as well as low-dose aspirin for history of possible TIA, I recommended that she hold her aspirin until she has been evaluated in the outpatient Neurology Clinic and all of the aforementioned data has been compared and considered. In the meantime, she will continue with her systemic anticoagulation a goal INR of 2.5-3.5. She also continue her home dosage of metoprolol, and we have added low dosage amlodipine as well. She did provide a blood pressure log and we recommended that she continue checking these values at home to ensure that she does not have any subsequent hypotension. DISCHARGE MEDICATIONS: Please see official discharge medication reconciliation sheet in chart , continue all home medications with the discontinuation of aspirin, initiation of amlodipine 2.5 mg daily. DISCHARGE INSTRUCTIONS: Please follow up with outpatient neurology clinic and then PCP thereafter.
[2018-06-07] MEDS ORDERED: WARFARIN SODIUM 2 MG TAB PO SCH (19:00)
== END 2018-06-07 11:46 | disposition home or self-care (01) ==
LOC: F2N 15:08 → F3N 21:17
PROVIDERS: ADMIT Internal Medicine; ATTEND Internal Medicine
DX: I67.4 Hypertensive encephalopathy (principal); I16.0 Hypertensive urgency; E86.9 Volume depletion, unspecified; Z95.2 Presence of prosthetic heart valve
CPT/HCPCS: 70450; 70553; 92523; 93005; 96361; 96374; 97161; 99291; A9585; G0378; G8978; G8979; G8980; G9165; G9166; G9167; J2060

== ENCOUNTER → 2019-01-16 | Outpatient (CLI) | payer OTHER | LOC: BHFA 10:45 | PROVIDERS: ATTEND Internal Medicine Cardiovascular Disease | DX: I05.9 Rheumatic mitral valve disease, unspecified (principal); I10 Essential (primary) hypertension ==

== ENCOUNTER → 2019-03-10 | Outpatient (CLI) | payer OTHER | LOC: BMCIMAGING 09:40 ==